=== PATIENT | female | born 1980 | race Caucasian/White ===

== ENCOUNTER 2016-08-08 07:51 | Inpatient (IN) | payer BC ==
[2016-08-08] MEDS ORDERED: TERBUTALINE 1 MG/ML VIAL SQ PRN (08:18)
[2016-08-08] MEDS ORDERED: OXYTOCIN 10 UNIT/ML 1 ML VIAL IM PRN (08:18)
[2016-08-08] MEDS ORDERED: LIDOCAINE 1% (PF) 10 MG/ML (30 ML SDV) SQ PRN (08:18)
[2016-08-08] MEDS ORDERED: METHYLERGONOVINE 0.2 MG/ML 1 ML AMP IM PRN (08:18)
[2016-08-08] MEDS ORDERED: CARBOPROST TROMETHAMINE 250 MCG/ML 1 ML AMP IM PRN (08:18)
[2016-08-08] MEDS ORDERED: CLINDAMYCIN 900 MG in DEXTROSE 5% IN WATER 50 ML IVPB STA ×2 (08:22)
[2016-08-08] MEDS ORDERED: BUPIVACAINE (PF) 0.25% 30 ML VIAL ONE (08:29)
[2016-08-08] MEDS ORDERED: fentaNYL (PF) 50 MCG/ML 5 ML AMP ONE (08:29)
[2016-08-08] MEDS ORDERED: SODIUM CHLORIDE 0.9% 100 ML BAG ONE (08:29)
[2016-08-08] MEDS ORDERED: LACTATED RINGERS 1,000 ML IV SCH ×2 (08:30)
[2016-08-08 08:43] LABS: Basophils % (A) 0 %; CH 31.6; CHCM 35.8; Eosinophils # (A) 0.1 k/uL (0-0.7); Eosinophils % (A) 1 %; HCT 39.4 % (34.0-46.0); Luc # (Auto) 0.31; Luc % (Auto) 2; Lymphocytes # (A) 1.7 k/uL (1.0-4.8); Lymphocytes % (A) 10 %; MCH 31.6 pg (25.0-35.0); MCHC 35.5 g/dL (31.0-37.0); MCV 88.9 fL (80.0-100.0); Mean Platelet Volume 7.2; Monocytes # (A) 0.9 k/uL (0-1.0); Monocytes % (A) 5 %; Neutrophils # (A) 13.4 k/uL (1.3-7.7); Neutrophils % (A) 82 %; RBC 4.44 m/uL (3.80-5.40); RDW 13.1 % (11.5-15.5); WBC 16.4 k/uL (3.8-10.6); WBC (Perox) 14.13
[2016-08-08] MEDS ORDERED: BUPIVACAINE (PF) 0.25% 25 ML, fentaNYL (PF) 200 MCG in SODIUM CHLORIDE 0.9% 71 ML EPIDURAL ONE (08:46)
[2016-08-08] MEDS ORDERED: ceFAZolin 2 GM in SODIUM CHLORIDE 0.9% 100 ML IVPB STA (10:33)
[2016-08-08 11:19] VITALS: BMI 29.2
--- NOTE | 2016-08-08 12:43 | P.HPOB ---
History of Present Illness H&P Date: 08/08/16 Chief Complaint: 39-2/7 weeks, early active labor The patient is a 36-year-old 3 para 1011 admitted at 39-2/7 weeks as established by last menstrual period and confirmed by seven-week ultrasound. She is admitted in early active labor with her cervix being found to be 567 m dilated. Contractions are irregular every 5-6 minutes. On admission, all signs reassuring. Her has been uncomplicated though she is Rh- and received RhoGAM at 28 weeks. She additionally is known to be group B strep positive and requires antibiotic prophylaxis. Obstetrical history 3 para 1011 with 1 term vaginal delivery without complications. She did have one early elective interruption of years ago. Current statistics are listed in history of present illness. EDC of 08/13/2016 was established by last menstrual period and confirmed by seven-week ultrasound. Laboratory workup done traits of blood type of B- with a negative antibody screen. Rubella status is immune. All other laboratory workup was within normal limits. One hour Glucola was normal and group B strep status is positive. Gynecologic history is unremarkable with no history of any infections to include STDs. Review of Systems Review of systems is confined to history of present illness. Past Medical History Additional Past Medical History / Comment(s): Clotting disorder- dx at begining of this History of Any Multi-Drug Resistant Organisms: None Reported Past Surgical History: Breast Surgery Additional Past Surgical History / Comment(s): Breast Augmentation- 2008. Hernia removed at 5 months old. VTOP Past Anesthesia/Blood Transfusion Reactions: No Reported Reaction Past Psychological History: Anxiety Smoking Status: Former smoker Past Drug Use History: None Reported - Past Family History Father Family Medical History: Blood Disorder, Cancer Additional Family Medical History / Comment(s): Thrombophilia Medications and Allergies Home Medications Medication Instructions Recorded Confirmed Type Vit No.124/Iron/FA 1 each PO DAILY 01/27/15 01/27/15 History [ Vitamin Tablet] Allergies Allergy/AdvReac Type Severity Reaction Status Date / Time latex Allergy Rash/Hives Verified 08/08/16 08:16 Penicillins Allergy Rash/Hives Verified 08/08/16 08:16 Exam - Vital Signs Vital signs: Vital Signs Temp Pulse Resp BP Pulse Ox 08/08/16 08:15 96.8 F L 100 16 125/73 97 Intake and Output 05/17/17 05/18/17 05/18/17 22:59 06:59 14:59 Other: Weight 77.111 kg Patient Weight 08/09/16 06:59 Weight 77.111 kg In general, this is a well-developed, well-nourished white female in no acute distress. Her heart has a regular rhythm and rate without murmur. Her lungs are clear to auscultation bilaterally in all burns. Her abdomen is gravid, nondistended, has normal active bowel sounds, is soft, nontender, and without any palpable masses aside from uterine fundus. Her extremities are without any cyanosis, clubbing, or significant edema and are nontender to palpation bilaterally. Most recent cervical examination done by the nursing staff demonstrates her cervix to be 7 cm dilated, 9200% effaced, with the vertex in presentation at 0 station. Spontaneous rupture of membranes has not been documented. Results Result Diagrams: 08/08/16 08:20 Abnormal Lab Results - Last 24 Hours (Table) 08/08/16 Range/Units 08:20 WBC 16.4 H (3.8-10.6) k/uL Neutrophils # 13.4 H (1.3-7.7) k/uL Assessment and Plan (1) Group B streptococcal infection in Status: Acute (2) Active labor at term Status: Acute Plan: The patient has been admitted for active management of labor. She will continue to have close maternal and surveillance and expectant management will be practiced. An epidural catheter has been placed for analgesia. She has had antibody prophylaxis started, initially with clindamycin which then was noted to be a resistance based upon her culture. She then was given a dose of Ancef 2 g IV. We will not intervene or actively augment labor until the patient is at or near 4 hours after adequate antibiotic prophylaxis in order to cover the group B strep.
[2016-08-08] MEDS ORDERED: OXYTOCIN 20 UNITS/1000 ML NS 1,000 ML IV SCH (13:15)
[2016-08-08] MEDS ORDERED: Acetaminophen-Codeine 300-30mg TAB PO PRN ×2 (15:35)
[2016-08-08] MEDS ORDERED: WITCH HAZEL 1 EACH MED..PAD TOPICAL PRN (15:35)
[2016-08-08] MEDS ORDERED: HYDROCORTISONE 2.5% RECTAL CREAM 30 GM TUBE RECTAL PRN (15:35)
[2016-08-08] MEDS ORDERED: LANOLIN CREAM 5 GM TUBE TOPICAL PRN (15:35)
[2016-08-08] MEDS ORDERED: ACETAMINOPHEN TAB 325 MG TAB PO PRN (15:35)
[2016-08-08] MEDS ORDERED: IBUPROFEN 600 MG TAB PO PRN (15:35)
[2016-08-08] MEDS ORDERED: SIMETHICONE 80 MG CHEWABLE PO PRN (15:35)
[2016-08-08] MEDS ORDERED: diphenhydrAMINE 25 MG CAP PO PRN (15:35)
[2016-08-08] MEDS ORDERED: diphenhydrAMINE 50 MG CAP PO PRN (15:35)
[2016-08-08] MEDS ORDERED: BENZOCAINE/MENTHOL SPRAY 1 GM/SPRAY AEROSOL TOPICAL PRN (15:35)
[2016-08-08] MEDS ORDERED: diphenhydrAMINE 50 MG/ML 1 ML VIAL IVP PRN ×2 (15:35)
[2016-08-08] MEDS ORDERED: ZOLPIDEM 5 MG TAB PO PRN (15:35)
--- NOTE | 2016-08-08 15:39 | P.PROBDLV ---
Vaginal Delivery Note - . Vaginal Delivery Note: The patient is a 36-year-old 3 para 1011 admitted at 39+ weeks by good dating parameters perches admitted in early active labor with all signs reassuring. Her has been uncomplicated and group B strep status is positive. On admission, she had Clinimix and started for antibody prophylaxis against group B strep as well as an epidural catheter placed for analgesia. Shortly thereafter determined that her culture for group B strep demonstrated resistance to clindamycin and Ancef 2 g was ordered. Some no further augmentation was undertaken until 4 hours post delivery of the dose of Ancef. She then had Pitocin augmentation started and made progress to complete. She then had spontaneous rupture of membranes showing clear fluid. She pushed for approximately 45 minutes to a normal spontaneous vaginal delivery of a viable 8 lbs. 12 oz. baby boy with Apgars of 9 at 1 minute and 9 at 5 minutes delivered in the left occiput anterior position. There was a nuchal cord 1 which was reduced following delivery of the . cord blood was collected for evaluation for the necessity of RhoGAM. The placenta was delivered spontaneously, intact, and grossly normal with a grossly normal three-vessel cord inserted approximate 4-5 cm from the margin of the placenta. There are no lacerations of the perineum, vagina, or cervix. Estimated blood loss for the case was approximately 150 mL. All sponge, instrument, and needle counts were correct. Both mother and are resting comfortably in recovery.
[2016-08-08] MEDS ORDERED: CLINDAMYCIN 900 MG in DEXTROSE 5% IN WATER 50 ML IVPB SCH ×2 (16:18)
[2016-08-08] MEDS: SENNOSIDES-DOCUSATE SODIUM 1 EACH TAB PO SCH (19:47)
[2016-08-09 04:24] VITALS: RESP 16
[2016-08-09 08:42] VITALS: BP 106/56; PULSE 88; TEMP 98.3
[2016-08-09] MEDS: SENNOSIDES-DOCUSATE SODIUM 1 EACH TAB PO SCH (08:43)
--- NOTE | 2016-08-09 09:23 | P.DS ---
Providers Date of admission: 08/08/16 08:07 Expected date of discharge: 08/09/16 Attending physician: Willard Peña Primary care physician: Stated None - Discharge Diagnosis(es) (1) Group B streptococcal infection in Current Visit: Yes Status: Acute (2) Active labor at term Current Visit: Yes Status: Acute (3) Normal spontaneous vaginal delivery Current Visit: Yes Status: Acute Hospital Course: The patient is a 36-year-old 3 para 1011 admitted at 39-2/7 weeks by good dating parameters perches admitted in early active labor with all signs reassuring. Her had been uncomplicated and group B strep status is positive. She initially had clindamycin started and then was found to have resistance on her culture include a moistened. She therefore had Ancef started. No active intervention in the process was made until 4 hours after Ancef had been given. She then had Pitocin augmentation started and progressed to complete. She pushed to a normal spontaneous vaginal delivery of a viable 8 lbs. 12 oz. baby boy with Apgars of 9 at 1 minute and 9 at 5 minute's. Her course was unremarkable with vital signs remaining stable and her temperature was afebrile throughout. She was deemed stable for discharge by day #1 and was discharged home to follow-up in the office in 6 weeks ' time routinely. Discharge instructions included calling for any significantly increased bleeding or foul-smelling lochia, significantly increased fever or abdominal pain, perineal complaints, breast complaints, or anything else that concerned her. She was additionally instructed to have nothing in the vagina for at least 6 weeks time to include intercourse. She understood her instructions and agrees to follow up as noted above. Discharge medications included only [id number] analgesic pain medications as well as continued vitamins as she has opted to breast-feed. Maternal blood type is B- and rubella status is immune. Procedures: #1. Antibiotic prophylaxis #2. Epidural analgesia #3. Pitocin augmentation # 4. Normal spontaneous vaginal delivery Patient Condition at Discharge: Good Plan - Discharge Summary Discharge Medication List Vit No.124/Iron/FA [ Vitamin Tablet] 1 each PO DAILY 01/27/15 [ History] Follow up Appointment(s)/Referral(s): Willard Peña MD [STAFF PHYSICIAN] - 6 Weeks Discharge Disposition: HOME SELF-CARE
== END 2016-08-09 16:09 | disposition home or self-care (01) | DRG 775 ==
LOC: FBPOP 07:51 → 4FBP 08:07
PROVIDERS: ADMIT Obstetrics & Gynecology; ATTEND Obstetrics & Gynecology
PROC: 10E0XZZ Delivery of Products of Conception, External Approach (ICD-10-PCS; principal; 2016-08-08)
PROC: 00HU33Z Insertion of Infusion Device into Spinal Canal, Percutaneous Approach (ICD-10-PCS; 2016-08-08)
PROC: 3E0R3CZ (ICD-10-PCS; 2016-08-08)
DX: O99.824 Streptococcus B carrier state complicating childbirth (principal); O36.0930 Maternal care for other rhesus isoimmunization, third trimester, not applicable or unspecified; O69.81X0 Labor and delivery complicated by cord around neck, without compression, not applicable or unspecified; Z3A.39 39 weeks gestation of pregnancy; Z37.0 Single live birth; Z87.891 Personal history of nicotine dependence; Z86.59 Personal history of other mental and behavioral disorders
CPT/HCPCS: 85025; 88307

== ENCOUNTER → 2019-11-18 | Outpatient (CLI) | payer BC ==
--- NOTE | 2019-11-18 08:34 | US ---
EXAMINATION TYPE: US abdomen complete DATE OF EXAM: 11/18/2019 COMPARISON: NONE CLINICAL HISTORY: 39-year-old female R108.11 RUQ ABD TENDERNESS, R10.11 RUQ ABD PAIN. TECHNIQUE: Multiple sonographic images of the abdomen are obtained. FINDINGS: EXAM MEASUREMENTS: Liver Length: 12.0 cm Gallbladder Wall: 0.2 cm CBD: 0.3 cm Spleen: 9.1 cm Right Kidney: 10.6 x 3.9 x 4.0 cm Left Kidney: 11.0 x 4.4 x 4.4 cm Pancreas: Echogenic area visualized at the level of the pancreatic head measuring 0.7 x 0.4 x 1.0 cm , possible focus of calcification Liver: wnl Gallbladder: wnl Evidence for sonographic Gallegos's sign: No CBD: wnl Spleen: wnl Kidneys: No hydronephrosis. Upper IVC: wnl Abd Aorta: wnl IMPRESSION: 1. A 10 x 7 mm ovoid echogenic area at the pancreatic head could represent a focus of calcification. Pancreas protocol CT can further evaluate. 2. No gallstones or biliary ductal dilatation.
== END | disposition home or self-care (01) ==
LOC: RADUSWWP 07:31
PROVIDERS: ATTEND Family Medicine
DX: R10.811 Right upper quadrant abdominal tenderness (principal); R10.11 Right upper quadrant pain
CPT/HCPCS: 76700

== ENCOUNTER → 2019-11-30 | Outpatient (CLI) | payer BC ==
--- NOTE | 2019-12-01 08:03 | CT ---
EXAMINATION TYPE: CT abdomen wo/w con DATE OF EXAM: 11/30/2019 COMPARISON: None INDICATION: UPPER ABDOMINAL PAIN, R/O PANCREATITIS DLP: 373.6 mGycm, Automated exposure control for dose reduction was used. CONTRAST: 100 mL of Isovue 370. Study performed with Oral Contrast TECHNIQUE: Axial images were obtained from above the diaphragm to the pubic rami in the axial plane a t 5 mm thick sections. Reconstructed images are reviewed on the computer in the coronal plane. FINDINGS: Limited CT sections are obtained the lung bases. The lung bases are clear. CT ABDOMEN: Liver: Normal Spleen: Normal Pancreas: Normal. No adjacent inflammatory changes are evident. No pseudocyst formation or abscess fo rmation is evident. There is little abdominal fat which causes some limitation of evaluation. Adrenal glands: The adrenal glands are normal. Gallbladder: Normal Kidneys: No masses are evident. No hydronephrosis is present. No cysts are present. Delayed images were obtained through the kidneys, which remain unremarkable. Aorta: Normal Inferior vena cava: Normal. Bowel loops are with water as oral contrast. No suspicious bowel abnormality is identified. IMPRESSIONS: 1. No suspicious changes for acute pancreatitis by CT exam.
== END | disposition home or self-care (01) ==
LOC: RADCTMAIN 12:22
PROVIDERS: ATTEND Family Medicine
DX: R10.811 Right upper quadrant abdominal tenderness (principal); R10.11 Right upper quadrant pain
CPT/HCPCS: 74170; Q9967

== ENCOUNTER → 2020-01-06 | Outpatient (CLI) | payer BC ==
--- NOTE | 2020-01-06 09:43 | NM ---
EXAMINATION TYPE: NM hepatobiliary w EF DATE OF EXAM: 01/06/2020 COMPARISON: Correlation CT 11/30/2019 HISTORY: 39-year-old female right upper quadrant tenderness, R10.811. TECHNIQUE: After the intravenous administration of 4.08 mCi Tc 99m Mebrofenin hepatobiliary scintigra phy is performed. Immediate images post injection. FINDINGS: There is satisfactory initial accumulation of tracer by the liver. The gallbladder is visualized wit hin 16 minutes. The small bowel activity is noted within 10 minutes. At one hour 8 ounces of oral e nsure plus is given to mimic CCK and gallbladder ejection fraction is calculated at 79%. IMPRESSION: 1. No scintigraphic evidence for acute/chronic cholecystitis or biliary dyskinesia. 2. Gallbladder ejection fraction of 79% is borderline elevated and may be seen with gallbladder hyper kinesis. Clinically correlate.
== END | disposition home or self-care (01) ==
LOC: RADNMMAIN 06:57
PROVIDERS: ATTEND Physician Assistant Medical
DX: R10.811 Right upper quadrant abdominal tenderness (principal); R10.11 Right upper quadrant pain; K59.00 Constipation, unspecified
CPT/HCPCS: 78226; A9537

== ENCOUNTER 2020-06-20 09:51 | Emergency (ER) | payer BC ==
[2020-06-20 10:06] VITALS: BP 95/64; PULSE 104; RESP 18; TEMP 98.3
--- NOTE | 2020-06-20 10:25 | ED ---
Extremity Problem HPI - General Chief complaint: Extremity Problem,Nontraumatic Stated complaint: Leg pain/Covid+ Time Seen by Provider: 06/20/20 10:07 Source: patient Mode of arrival: ambulatory Limitations: no limitations - History of Present Illness Initial comments: 39-year-old female presents emergency Department with a chief complaint of leg pain. Patient reports recently she was diagnosed with Covid. She reports developing an achy pain initially in her right But not is mostly located in her left calf. Patient reports pain seems to be exacerbated with palpation but not significantly with ambulation or weightbearing. She denies any erythema or swelling in either leg. Denies any chest pain or shortness of breath. Denies history of DVT or PE. Not currently taking exogenous estrogens. No recent hospitalizations or surgeries. - Related Data Home Medications Medication Instructions Recorded Confirmed Vit No.124/Iron/Folic 1 each PO DAILY 01/27/15 01/27/15 [ Vitamin Tablet] Allergies Allergy/AdvReac Type Severity Reaction Status Date / Time latex Allergy Rash/Hives Verified 06/20/20 10:06 Penicillins Allergy Rash/Hives Verified 06/20/20 10:06 Review of Systems ROS Statement: Those systems with pertinent positive or pertinent negative responses have been documented in the HPI. ROS Other: All systems not noted in ROS Statement are negative. Past Medical History Additional Past Medical History / Comment(s): Clotting disorder- dx at begining of this , covid History of Any Multi-Drug Resistant Organisms: None Reported Past Surgical History: Breast Surgery Additional Past Surgical History / Comment(s): Breast Augmentation- 2008. Hernia removed at 5 months old. VTOP Past Anesthesia/Blood Transfusion Reactions: No Reported Reaction Past Psychological History: Anxiety Smoking Status: Never smoker Past Alcohol Use History: None Reported Past Drug Use History: None Reported - Past Family History Father Family Medical History: Blood Disorder, Cancer Additional Family Medical History / Comment(s): Thrombophilia General Exam Limitations: no limitations General appearance: alert, in no apparent distress Head exam: Present: atraumatic, normocephalic, normal inspection Eye exam: Present: normal appearance, PERRL, EOMI Pupils: Present: normal accommodation ENT exam: Present: normal exam, normal oropharynx, mucous membranes moist Neck exam: Present: normal inspection, full ROM. Absent: tenderness Respiratory exam: Present: normal lung sounds bilaterally. Absent: respiratory distress Cardiovascular Exam: Present: regular rate, normal rhythm, normal heart sounds Extremities exam: Present: normal inspection, full ROM, tenderness, normal capillary refill, calf tenderness (Tenderness bilaterally. Left greater than right), other (Palpable DP and PT bilaterally). Absent: pedal edema, joint swelling Back exam: Present: normal inspection, full ROM. Absent: tenderness, CVA tenderness (R) Neurological exam: Present: alert, oriented X3, normal gait Psychiatric exam: Present: normal affect, normal mood Skin exam: Present: warm, dry, intact, normal color Course Vital Signs 06/20/20 10:02 Temperature 98.3 F Pulse Rate 104 H Respiratory 18 Rate Blood Pressure 95/64 O2 Sat by Pulse 97 Oximetry Medical Decision Making - Medical Decision Making 39-year-old female presents to emergency Department with a chief complaint of leg pain. On physical examination, patient is neurovascularly intact. She does have calf tenderness in bilateral lower extremities. Left greater than right. The rest of physical exam is unremarkable. No chest pain or shortness of breath. Ultrasound shows no signs of DVT. Patient will be discharged with an outpatient follow-up. Strict return parameters were thoroughly discussed with patient was understanding and agreeable. Case discussed with Dr. Morejon. Disposition Clinical Impression: Leg pain, bilateral Disposition: HOME SELF-CARE Condition: Stable Instructions (If sedation given, give patient instructions): Muscle Strain (DC) Additional Instructions: Please return to the Emergency Department if symptoms worsen or any other concerns. Is patient prescribed a controlled substance at d/c from ED?: No Referrals: Ashutosh Lance DO [Primary Care Provider] - 1-2 days Time of Disposition: 11:52
--- NOTE | 2020-06-20 11:28 | US ---
EXAMINATION TYPE: US venous doppler duplex LE DATE OF EXAM: 06/20/2020 11:23 AM COMPARISON: NONE CLINICAL HISTORY: r/o dvt. positive COVID, achy legs, no h/o dvt SIDE PERFORMED: Bilateral TECHNIQUE: The lower extremity deep venous system is examined utilizing real time linear array sonog arvin with graded compression, doppler sonography and color-flow sonography. VESSELS IMAGED: Common Femoral Vein Deep Femoral Vein Greater Saphenous Vein * Femoral Vein Popliteal Vein Small Saphenous Vein * Proximal Calf Veins (* superficial vessels) Right Leg: Negative for DVT Left Leg: Negative for DVT IMPRESSION: 1. Bilateral lower extremity ultrasound negative for deep venous thrombosis.
== END 2020-06-20 12:04 | disposition home or self-care (01) ==
LOC: EC 09:51
DX: M79.605 Pain in left leg (principal); M79.604 Pain in right leg; Z88.0 Allergy status to penicillin; Z91.040 Latex allergy status; Z86.16 Personal history of COVID-19
CPT/HCPCS: 93970; 99283

== ENCOUNTER → 2021-02-19 | Outpatient (CLI) | payer BC ==
--- NOTE | 2021-02-22 11:32 | MM ---
Reason for exam: screening (asymptomatic). Last mammogram was performed 7 years and 1 month ago. History: Family history of breast cancer in father at age 40. Silicone gel implants in both breasts, May 2008. Took hormonal contraceptives for 2 years. Physical Findings: A clinical breast exam by your physician is recommended on an annual basis and results should be correlated with mammographic findings. MG 3D Screen Mammo Imp/Cad Bilateral CC and MLO view(s) were taken. Prior study comparison: January 05, 2014, bilateral MG diagnostic mammo w CAD DEBBIE. The breast tissue is extremely dense which could obscure a lesion on mammography. Finding: There are typically benign spherical calcification in the upper outer quadrant, anterior position of the right breast. Bilateral breast prothesis. New finding since January 05, 2014. ASSESSMENT: Benign, BI-RAD 2 RECOMMENDATION: Routine screening mammogram of both breasts in 1 year.
== END | disposition home or self-care (01) ==
LOC: RADMAMWWP 13:06
PROVIDERS: ATTEND Family Medicine
DX: Z12.31 Encounter for screening mammogram for malignant neoplasm of breast (principal); Z80.3 Family history of malignant neoplasm of breast; Z98.82 Breast implant status
CPT/HCPCS: 77063; 77067

== ENCOUNTER → 2024-01-06 | Outpatient (CLI) | payer BC ==
--- NOTE | 2024-01-06 12:21 | MM ---
Reason for Exam: Screening (asymptomatic). Last mammogram was performed 2 year(s) and 11 month(s) ago. Patient History: Menarche at age 13. First Full-Term at age 34. Late child-bearing (after 30). Premenopausal. Patient has history of breast feeding. Patient used Hormonal Contraceptives for 2 years. 05/2008, Bilateral Implants. Father had breast cancer, age 40. Last menstrual period: 12/07/2023 Risk Values: Lorelei 5 year model risk: 0.9%. NCI Lifetime model risk: 14.7%. Prior Study Comparison: 01/05/2014 Bilateral Diagnostic Mammogram, [facility]. 02/19/2021 Bilateral Screening Mammogram, [facility]. Tissue Density: The breasts are extremely dense, which lowers the sensitivity of mammography. Findings: Analyzed By CAD. There is no suspicious group of microcalcifications or new suspicious mass in either breast. Benign-appearing calcifications. Post breast implant surgery. Overall Assessment: Benign, BI-RAD 2 Management: Screening Mammogram of both breasts in 1 year. . Patient should continue monthly self-breast exams. A clinical breast exam by your physician is recommended on an annual basis. This exam should not preclude additional follow-up of suspicious palpable abnormalities. Note on Lorelei scores and lifetime risk: 1. A Lorelei score greater than 3% is considered moderate risk. If this is the case, consider specialist referral to assess eligibility for a risk reducing agent. 2. If overall lifetime risk for the development of breast cancer is 20% or higher, the patient may qualify for future screening with alternating mammogram and breast MRI. [facility], , 01/06/2024 12:18 PM. Electronically signed and approved by: Jamarcus Wolfe M.D. Radiologis
== END | disposition home or self-care (01) ==
LOC: RADMAMWWP 11:31
PROVIDERS: ATTEND Obstetrics & Gynecology
CPT/HCPCS: 77063; 77067